=== PATIENT | female | born 1995 | race Caucasian/White ===

== ENCOUNTER 2017-08-04 22:22 | Emergency (ER) | payer MEDICAID ==
[2017-08-05 01:12] VITALS: BP 123/66
== END 2017-08-05 01:12 | disposition home or self-care (01) ==
LOC: ED 22:22
DX: R51 Headache (principal)
CPT/HCPCS: J1885; J2405; J7510

== ENCOUNTER 2017-08-20 17:19 | Emergency (ER) | payer MEDICAID ==
[~2017-08-20] VITALS: Ht 182.9 cm; Wt 103.9 kg
[2017-08-20 19:54] LABS: BASOPHIL % 0.2 % (0-2); PLATELET COUNT 247 x10^3mcL (130-400)
[2017-08-20 19:55] LABS: RED CELL DISTRIBUTION WIDTH 18.8 % (11.5-14.5)
[2017-08-20 19:58] LABS: CALCIUM 9.2 mg/dL (8.5-10.1); CARBON DIOXIDE 25.9 mmol/L (21-32); CHLORIDE SERUM 102 mmol/L (98-107); CREATININE SERUM 0.9 mg/dL (0.6-1.0); GFR1 > 60 mL/min; GLUCOSE SERUM 102 mg/dL (74-106); POTASSIUM SERUM 3.6 mmol/L (3.5-5.1); SODIUM SERUM 138 mmol/L (136-145)
[2017-08-20 20:04] LABS: ALBUMIN 3.8 g/dL (3.4-5.0); ALKALINE PHOSPHATASE 87 U/L (46-116); ALT/SGPT 26 U/L (14-59); AST/SGOT 9 U/L (15-37); BILIRUBIN TOTAL 0.3 mg/dL (0.20-1.00); CHOLESTEROL 175 mg/dL (<200); HDL CHOLESTEROL 53 mg/dL (40-60); TOTAL PROTEIN, SERUM 8.2 g/dL (6.4-8.2)
[2017-08-20 20:06] LABS: microscopic required? YES; urine erythrocyte 3+ (NEGATIVE)
[2017-08-20 22:07] VITALS: BP 117/45
== END 2017-08-20 21:50 | disposition home or self-care (01) ==
LOC: ED 17:19
PROVIDERS: Emergency Medicine
DX: R50.9 Fever, unspecified (principal); R51 Headache; R31.9 Hematuria, unspecified; R14.0 Abdominal distension (gaseous); J45.909 Unspecified asthma, uncomplicated
CPT/HCPCS: 83880; 87804; J1885; J7030; Q0092

== ENCOUNTER 2017-08-23 11:14 | Emergency (ER) | payer MEDICAID ==
[~2017-08-23] VITALS: Ht 182.9 cm; Wt 104.3 kg
[2017-08-23 11:36] VITALS: BP 125/71
== END 2017-08-23 12:53 | disposition home or self-care (01) ==
LOC: ED 11:14
DX: H10.89 Other conjunctivitis (principal)

== ENCOUNTER 2018-02-21 22:46 | Emergency (ER) | payer MEDICAID ==
[~2018-02-21] VITALS: Ht 182.9 cm; Wt 105.7 kg
[2018-02-21 22:56] VITALS: Ht 182.9 cm; Wt 105.7 kg
[2018-02-21 23:49] LABS: microscopic required? NO
[2018-02-21 23:55] LABS: BASOPHIL % 0.7 % (0-2); PLATELET COUNT 214 x10^3mcL (130-400)
[2018-02-22 00:03] LABS: UA SPECIFIC GRAVITY 1.025 (1.005-1.035); urine erythrocyte NEGATIVE (NEGATIVE)
[2018-02-22 00:32] LABS: CALCIUM 8.8 mg/dL (8.5-10.1); CARBON DIOXIDE 28.5 mmol/L (21-32); CHLORIDE SERUM 104 mmol/L (98-107); CREATININE SERUM 0.8 mg/dL (0.6-1.0); GFR1 > 60 mL/min; GLUCOSE SERUM 116 mg/dL (74-106); POTASSIUM SERUM 3.9 mmol/L (3.5-5.1); SODIUM SERUM 141 mmol/L (136-145)
[2018-02-22 00:37] LABS: ALBUMIN 3.7 g/dL (3.4-5.0); ALKALINE PHOSPHATASE 98 U/L (46-116); ALT/SGPT 27 U/L (14-59); AST/SGOT 13 U/L (15-37); BILIRUBIN TOTAL 0.1 mg/dL (0.20-1.00); TOTAL PROTEIN, SERUM 7.5 g/dL (6.4-8.2)
[2018-02-22 03:50] VITALS: BP 118/60
== END 2018-02-22 03:50 | disposition home or self-care (01) ==
LOC: ED 22:46
PROVIDERS: Emergency Medicine
DX: B37.3 Candidiasis of vulva and vagina (principal); N20.0 Calculus of kidney; J45.909 Unspecified asthma, uncomplicated
CPT/HCPCS: 87491; 87591; J1885; J2270; J2405; J7030

== ENCOUNTER 2019-04-05 16:33 | Emergency (ER) | payer MEDICAID ==
[~2019-04-05] VITALS: Ht 180.3 cm; Wt 107.5 kg
[2019-04-05 16:45] VITALS: Ht 180.3 cm; Wt 107.5 kg
[2019-04-05 17:57] LABS: BASOPHIL % 1.5 % (0-2); PLATELET COUNT 205 x10^3mcL (130-400); RED CELL DISTRIBUTION WIDTH 14.1 % (11.5-14.5)
[2019-04-05 19:11] VITALS: BP 125/87
== END 2019-04-05 19:11 | disposition home or self-care (01) ==
LOC: ED 16:33
PROVIDERS: Emergency Medicine
DX: N93.8 Other specified abnormal uterine and vaginal bleeding (principal); J45.909 Unspecified asthma, uncomplicated
CPT/HCPCS: 36415

== ENCOUNTER 2019-04-19 15:37 | Emergency (ER) | payer MEDICAID ==
[~2019-04-19] VITALS: Ht 182.9 cm; Wt 99.8 kg
[2019-04-19 15:38] VITALS: Ht 182.9 cm; Wt 99.8 kg
[2019-04-19 16:24] VITALS: BP 141/85
== END 2019-04-19 16:43 | disposition home or self-care (01) ==
LOC: ED 15:37
DX: F41.9 Anxiety disorder, unspecified (principal); F41.0 Panic disorder [episodic paroxysmal anxiety]; R03.0 Elevated blood-pressure reading, without diagnosis of hypertension; J45.909 Unspecified asthma, uncomplicated

== ENCOUNTER 2019-06-18 11:07 | Emergency (ER) | payer MEDICAID ==
[~2019-06-18] VITALS: Ht 182.9 cm; Wt 104.3 kg
[2019-06-18 11:09] VITALS: Ht 182.9 cm; Wt 104.3 kg
[2019-06-18 11:52] LABS: BASOPHIL % 0.7 % (0-2); PLATELET COUNT 232 x10^3mcL (130-400); RED CELL DISTRIBUTION WIDTH 14.1 % (11.5-14.5)
[2019-06-18 12:01] LABS: CALCIUM 9.3 mg/dL (8.5-10.1); CARBON DIOXIDE 24.5 mmol/L (21-32); CHLORIDE SERUM 102 mmol/L (98-107); CREATININE SERUM 0.9 mg/dL (0.6-1.0); GFR1 > 60 mL/min; GLUCOSE SERUM 104 mg/dL (74-106); SODIUM SERUM 139 mmol/L (136-145)
[2019-06-18 12:05] LABS: ALBUMIN 3.7 g/dL (3.4-5.0); ALKALINE PHOSPHATASE 69 U/L (46-116); ALT/SGPT 25 U/L (14-59); AST/SGOT 13 U/L (15-37); BILIRUBIN TOTAL 0.2 mg/dL (0.20-1.00); TOTAL PROTEIN, SERUM 7.6 g/dL (6.4-8.2)
[2019-06-18 13:26] VITALS: BP 110/66
== END 2019-06-18 13:26 | disposition home or self-care (01) ==
LOC: ED 11:07
PROVIDERS: Emergency Medicine
DX: N20.0 Calculus of kidney (principal); F41.9 Anxiety disorder, unspecified
CPT/HCPCS: J0780; J1200; J1885; J7030